=== PATIENT | female | born 1985 | race Caucasian/White ===

== ENCOUNTER → 2025-01-24 13:48 | Outpatient (REF) | payer OTHER, SELFPAY | LOC: HWWDC 13:48 | PROVIDERS: ATTENDING PHYSICIAN Physician Assistant Medical | DX: Z12.31 Encounter for screening mammogram for malignant neoplasm of breast (principal); E04.9 Nontoxic goiter, unspecified | CPT/HCPCS: 76536; 77063; 77067 ==